=== PATIENT | female | born 1985 | race Caucasian/White ===

== ENCOUNTER 2018-04-08 08:12 | Emergency (ER) | payer BC, OTHER ==
--- NOTE | 2018-04-08 08:55 | UC ---
Ear Complaint HPI - HPI Summary HPI Summary: Per charge entry "Right ear plugged feeling since 03/30/18. Starting to have left ear pain as well. Started out as cough, congestion which has improved while ears have not. Taking leftover augmentin 500-125mg PO BID x5 days without relief. " Denies fevers and chills. Mild sinus pain and pressure. Minimal symptoms on last. No wheezing. Has not taken any Flonase or other nasal sprays or antihistamines. No known history of allergies. Symptoms started after she went hiking initially. She was getting allergies. - History of Current Complaint Chief Complaint: UCEar Stated Complaint: RIGHT EAR Time Seen by Provider: 04/08/18 08:30 Hx Last Menstrual Period: 04/02/18 Pain Intensity: 7 - Allergies/Home Medications Allergies/Adverse Reactions: Allergies Allergy/AdvReac Type Severity Reaction Status Date / Time No Known Allergies Allergy Verified 04/08/18 08:35 Home Medications: Home Medications Ibuprofen TAB* [Motrin TAB* 800 MG] 800 mg PO ONCE PRN 04/08/18 [History Confirmed 04/08/18] [email or web address] ER TAB [Mucinex*] 600 mg PO BID 04/08/18 [History Confirmed 04/08/18 ] PMH/Surg Hx/FS Hx/Imm Hx Previously Healthy: Yes - Surgical History Surgery Procedure, Year, and Place: x2. R ACL repair - Family History Known Family History: Positive: Hypertension - Social History Alcohol Use: Occasionally Substance Use Type: None Smoking Status (MU): Never Smoked Tobacco Review of Systems Constitutional: Negative Skin: Negative Eyes: Negative ENT: Negative, Ear Ache, Nasal Discharge Respiratory: Cough Cardiovascular: Negative Gastrointestinal: Negative Genitourinary: Negative Motor: Negative Neurovascular: Negative Musculoskeletal: Negative Neurological: Negative Psychological: Negative Is Patient Immunocompromised?: No All Other Systems Reviewed And Are Negative: Yes Physical Exam Triage Information Reviewed: Yes Appearance: Well-Appearing, No Pain Distress, Well-Nourished Vital Signs: Initial Vital Signs Temp 97.9 F 04/08/18 08:29 Pulse 76 04/08/18 08:29 Resp 18 04/08/18 08:29 BP 126/81 04/08/18 08:29 Pulse Ox 100 04/08/18 08:29 Eye Exam: Normal ENT Exam: Normal ENT: Positive: Pharynx normal, Nasal congestion, Other - B/L TMs w/ serous fluid Rt > Lt. intact. rt fullness. no tenderness to external ear, canals nml. no cerumen.. Negative: TM bulging, TM dull, TM red, Tonsillar swelling, Tonsillar exudate, Muffled voice, Sinus tenderness Dental Exam: Normal Neck exam: Normal Neck: Positive: Supple, Nontender, No Lymphadenopathy Respiratory Exam: Normal Respiratory: Positive: Lungs clear, Normal breath sounds, No respiratory distress, No accessory muscle use. Negative: Crackles, Rhonchi, Stridor, Wheezing Cardiovascular Exam: Normal Cardiovascular: Positive: RRR, No Murmur Abdomen Description: Positive: Nontender, Soft Musculoskeletal Exam: Normal Neurological Exam: Normal Psychological Exam: Normal Skin Exam: Normal Ear Complaint Course/Dx - Course Course Of Treatment: stop augmentin. no e/o bacterial infection. she should not take meds that are not prescribed to her. - Differential Dx/Diagnosis Differential Diagnosis/HQI/PQRI: Cerumen Impaction, Otitis Externa, Otitis Media , URI Provider Diagnoses: B/L serous otitis Discharge - Sign-Out/Discharge Documenting (check all that apply): Discharge/Admit/Transfer - Discharge Plan Condition: Stable Disposition: HOME Patient Education Materials: Serous Otitis Media (ED) Referrals: Jesus Manuel Ortiz NP [Primary Care Provider] - Additional Instructions: -You should use OTC flonase nasal spray per label instructions and cetirizine ( generic zyrtec) 10mgs daily. There is no bacterial infection and you should stop the antibiotic. - Billing Disposition and Condition Condition: STABLE Disposition: Home
== END 2018-04-08 09:04 | disposition home or self-care (01) ==
LOC: UCCORT 08:12
DX: H65.93 Unspecified nonsuppurative otitis media, bilateral (principal)
CPT/HCPCS: 99201; G0463